=== PATIENT | female | born 1985 | race Caucasian/White ===

== ENCOUNTER 2022-05-02 11:47 | Outpatient (CLI) | payer BC, SELFPAY ==
[2022-05-02 13:55] LABS: Chloride* 103 mmol/L (96-114); Potassium* 4.1 mmol/L (3.6-5.1); Sodium* 135 mmol/L (135-149)
[2022-05-02 13:58] LABS: Blood Urea Nitrogen* 17 mg/dL (5-24); Carbon Dioxide* 24 mmol/L (20-32); Creatinine* 0.8 mg/dL (0.5-1.5); Estimated Glomerular Filt Rate 98 ml/min
[2022-05-02 13:59] LABS: Calcium* 9.4 mg/dL (8.4-10.6); Glucose* 94 mg/dL (60-115)
== END 2022-05-02 11:48 | disposition home or self-care (01) ==
PROVIDERS: PCP Family Medicine; Visit Provider Family Medicine
DX: Z01.419 Encounter for gynecological examination (general) (routine) without abnormal findings (principal); R11.2 Nausea with vomiting, unspecified; N92.0 Excessive and frequent menstruation with regular cycle; Z11.3 Encounter for screening for infections with a predominantly sexual mode of transmission
CPT/HCPCS: 80048; 84443; 87624; 88175

== ENCOUNTER 2022-05-26 09:02 | Outpatient (CLI) | payer BC, SELFPAY ==
[2022-05-26 09:12] LABS: Influenza Type A POSITIVE (Negative); Influenza Type B Negative (Negative)
== END 2022-05-26 09:03 | disposition home or self-care (01) ==
LOC: FBOREF 09:02
PROVIDERS: PCP Family Medicine; Visit Provider Family Medicine
DX: R50.9 Fever, unspecified (principal); J10.1 Influenza due to other identified influenza virus with other respiratory manifestations
CPT/HCPCS: 87804

== ENCOUNTER 2024-10-01 09:50 | Outpatient (CLI) | payer BC, SELFPAY | END 2024-10-01 09:51 | disposition home or self-care (01) | PROVIDERS: PCP Family Medicine; Visit Provider Family Medicine | DX: Z13.228 Encounter for screening for other metabolic disorders (principal); Z13.220 Encounter for screening for lipoid disorders | CPT/HCPCS: 80048; 80061 ==